=== PATIENT | female | born 1955 | race Asian ===

== ENCOUNTER 2021-05-02 14:28 | Outpatient (CLI) | payer OTHER | END 2021-05-02 14:29 | disposition home or self-care (01) | LOC: CSHMAMMO 14:28 | PROVIDERS: ATTEND Family Medicine | DX: Z12.31 Encounter for screening mammogram for malignant neoplasm of breast (principal) | CPT/HCPCS: 77063; 77067 ==

== ENCOUNTER 2021-05-08 11:16 | Outpatient (CLI) | payer OTHER | END 2021-05-08 11:17 | disposition home or self-care (01) | LOC: CSHRAD 11:16 | PROVIDERS: ATTEND Family Medicine | DX: M54.50 Low back pain, unspecified (principal); M25.539 Pain in unspecified wrist; G89.29 Other chronic pain; M19.032 Primary osteoarthritis, left wrist; M47.816 Spondylosis without myelopathy or radiculopathy, lumbar region | CPT/HCPCS: 72100 ==

== ENCOUNTER 2021-09-17 09:56 | Outpatient (CLI) | payer OTHER | END 2021-09-17 09:57 | disposition home or self-care (01) | LOC: CSHMAMMO 09:56 | PROVIDERS: ATTEND Family Medicine | DX: Z13.820 Encounter for screening for osteoporosis (principal); Z78.0 Asymptomatic menopausal state; N83.209 Unspecified ovarian cyst, unspecified side; M81.0 Age-related osteoporosis without current pathological fracture; M85.851 Other specified disorders of bone density and structure, right thigh; M85.852 Other specified disorders of bone density and structure, left thigh | CPT/HCPCS: 76856; 77080 ==

== ENCOUNTER 2023-10-01 10:21 | Outpatient (CLI) | payer OTHER | END 2023-10-01 10:22 | disposition home or self-care (01) | LOC: CSHMAMMO 10:21 | PROVIDERS: ATTEND Family Medicine | DX: Z12.31 Encounter for screening mammogram for malignant neoplasm of breast (principal) | CPT/HCPCS: 77063; 77067 ==